=== PATIENT | female | born 1980 | race Hispanic/Latino ===

== ENCOUNTER 2016-07-22 08:37 | Observation (INO) | payer MEDICAID, OTHER ==
[2016-07-22] VITALS (21 sets, daily range): BP systolic 97–129; BP diastolic 52–83; PULSE 56–115; RESP 10–19; O2SAT 95–100
[~2016-07-22] VITALS: Ht 154.9 cm; Wt 56.8 kg
[2016-07-22] MEDS ORDERED: Ondansetron 2 mg/mL 2 mL Inj IVPUSH ONE (09:05)
[2016-07-22] MEDS ORDERED: HYDROmorphone 0.5 mg/0.5 mL iSecure Syringe IVPUSH PRN (09:05)
[2016-07-22] MEDS ORDERED: 0.9% Sodium Chloride 1,000 ML IV ONE (09:05)
--- NOTE | 2016-07-22 09:22 | ED.REPORT ---
HPI-General Illness Date of Service Jul 22, 2016 ED Provider: Brennan Guerrero MD Pt is a 35 y/o female with a hx of gallstones who presents to the ED complaining of worsening RUQ abdominal pain for the past few days. Patient states that she has daily RUQ abdominal pain after eating, but that it has been especially severe for the past few days. Pt c/o of associated nausea and vomiting after eating. Pt denies hematochezia and fever. Her last PO intake was yesterday at 2300. She does not take any daily medications and is otherwise healthy. She is on the Depo shot and is not currently on her period. Nursing Notes Stated Complaint: GENERAL Chief Complaint: Female Abdominal Pain Nursing Notes Reviewed: Yes Allergies: Coded Allergies: No Known Allergies (Unverified Allergy, Unknown, 07/22/16) General Time Seen by MD: 09:04 Chief Complaint Abdominal pain Hx Obtained From: Patient, Spouse Arrived By: Walk-in Sudden in Onset?: Yes Onset Occurred: Just prior to arrival Symptom Duration: Since onset Location: : Abdomen Quality: Painful Severity: Current: Moderate Severity: Maximum: Moderate Similar Sx Previous: Yes Past Medical History Past Medical History known gallstones since 2010 Past Surgical History none reported Smoking History Unknown if Ever Smoker Social History Other Social History: Good social support, Local resident Ambulatory Status Independent Review of Systems Full Review of Systems Constitutional: Denies: Chills, Fever GI: Reports: Abdominal pain, Nausea, Vomiting, Denies: Hematochezia Complete sys rev & neg: except as marked. Physical Exam Vital Signs Vital Signs Date Time Temp Pulse Resp B/P Pulse Ox O2 Delivery O2 Flow Rate FiO2 07/22/16 10:49 37.1 78 97/63 Room Air 07/22/16 08:52 36.8 78 15 97/52 100 Room Air Initial VS: Reviewed General/Constitutional: Well-developed, Well-nourished Head / Eyes: Atraumatic, Normocephalic, PERRL ENT: Mucous membranes moist, Conjunctiva normal, No scleral icterus Neck: Supple, Non-tender, Full range of motion Respiratory: Breath sounds normal, Clear to auscultation, No respiratory distress Cardiovascular: Regular rate & rhythm, Heart sounds normal, Intact distal pulses Extremities: Vascular intact, Neuro intact Skin: Warm, Dry, No cyanosis Neurologic: Alert, Oriented, Nonfocal Psychiatric: Mood/affect normal, Behavior normal, Normal thought content General/Constitutional: Awake, Alert, Well appearing Head / Eyes: Atraumatic, Normocephalic, PERRL ENT: Atraumatic, Airway patent, Mucous membranes moist Abdomen: Soft, BS normoactive Tenderness/Guarding/Rebound: Positive: Guarding voluntary, Tender RUQ... ( exquisitely tender in RUQ) Interpretation & Diagnostics US ABDOMEN IMPRESSION: 1. Cholelithiasis, along with gallbladder wall thickening consistent with acute cholecystitis. 2. New dilation of the extrahepatic bile duct, suspicious for occult common bile duct stone. 3. Findings consistent with diffuse fatty infiltration of the liver, with focal fatty sparing adjacent to the gallbladder fossa. Dictated by: Amilcar Foreman M.D. on 07/22/2016 at 10:47 Approved by: Amilcar Foreman M.D. on 07/22/2016 at 10:47 Lab Results Interpretation Result Diagram: 07/22/16 0920 07/22/16 1808 Test 07/22/16 09:20 07/22/16 10:36 White Blood Count 12.8th/mm3 (3.8-10.1) Red Blood Count 5.08mil/mm3 (3.90-5.20) Hemoglobin 15.1g/dL (12.0-15.6) Hematocrit 43.2% (35.0-46.0) Mean Corpuscular Volume 85.0fL (81-100) Mean Corpuscular Hemoglobin 29.7pg (27.0-35.0) Mean Corpuscular Hemoglobin Concent 35.0% (32.0-37.0) Red Cell Distribution Width 13.5% (12.3-15.4) Platelet Count 248bil/L (150-400) Neutrophils (%) (Auto) 83.1% (40-74) Lymphocytes (%) (Auto) 9.3% (14-46) Monocytes (%) (Auto) 6.7% (4-12) Eosinophils (%) (Auto) 0.5% (0-5) Basophils (%) (Auto) 0.2% (0-3) Hold Ernst Top Tube Received (Received) Urine Color Yellow (YELLOW) Urine Appearance Hazy (CLEAR,HAZY) Urine pH 6.0 (5.0-8.0) Urine Specific [place] 1.010 (1.003-1.035) Urine Protein Negativemg/dL (NEG,TRACE) Urine Glucose (UA) Negativemg/dL (NEGATIVE) Urine Ketones Negativemg/dL (NEGATIVE) Urine Occult Blood Trace (NEGATIVE) Urine Nitrite Negative (NEGATIVE) Urine Bilirubin Small (NEGATIVE) Urine Ictotest Positive (Negative) Urine Urobilinogen Normalmg/dL (NORMAL) Urine Leukocyte Esterase Small (NEGATIVE) Urine RBC 0-2/hpf (0-2) Urine WBC 0-5/hpf (0-5) Urine Epithelial Cells Few/hpf (NONE-MOD) Urine Crystals None seen (NONE SEEN) Urine Bacteria Moderate/hpf (NONE-FEW) Urine Hyaline Casts None/lpf (NONE) Urine Granular Casts None seen (NONE SEEN) Urine Waxy Casts None seen (NONE SEEN) Urine Red Blood Cell Casts None seen (NONE SEEN) Urine White Blood Cell Casts None seen (NONE SEEN) Urine Mucus None seen (None Seen) Urine Trichomonas None seen (NONE SEEN) Urine Yeast None (NONE SEEN) Urinalysis Comment None Urine Culture Reflexed Indicated Re-Eval/Medical Decision Med Decision/Clinical Course The patient is a 35-year-old female with a history of previously diagnosed cholelithiasis in 2010 for which she never underwent cholecystectomy due to being lost to follow-up who presents back to the emergency department today complaining of increasingly worsening postprandial abdominal pain associated with subjective fever/chills and vomiting. Upon arrival she is afebrile hemodynamically stable though has significant tenderness and guarding in the right upper quadrant. Laboratory studies are notable for significantly elevated transaminases and elevated T bili of 1.7. Additionally CBC is notable for leukocytosis. Ultrasound of the right upper quadrant demonstrates dilated common bile duct of 10 mm, multiple gallstones and sludge in the gallbladder and thickened gallbladder wall at 6 mm consistent with acute cholecystitis. Here in the emergency department the patient was treated with Dilaudid, Zofran, and IV fluids, followed by LR at 100 per hour and a dose of Zosyn. The patient was discussed with the admitting general surgeon and plan is for laparoscopic cholecystectomy this afternoon. The patient remained stable and in no apparent distress and was admitted to the surgical service for further management. Urine dip was positive for blood and was negative Time of Eval: 10:00 Re-Evaluation/Progress Note: Pt rechecked. Informed pt of diagnosis of cholecystitis and need for admission. Pt understands and agrees with plan for admission. Pt will be admitted to surgery this afternoon. All questions addressed. Consultation : Referral / Consult Name: Sourav Butler MD Consulted With: Surgeon Call Returned at: 09:36 Gold Leaf Gilder: Will see patient, Agrees with eval, Agrees with plan, Accepts admit Note: Spoke with Dr. Butler, surgeon agrees to admit pt for surgery. Surgery set for this afternoon. Counseled Regarding: Diagnosis, Lab results, Need for admission Discharge & Departure Primary Impression: Cholecystitis Additional Impressions: Cholelithiasis Cholelithiasis location: gallbladder Cholecystitis presence: with cholecystitis Cholecystitis acuity: unspecified acuity Biliary obstruction: without biliary obstruction Qualified Code: K80.00 - Calculus of gallbladder with acute cholecystitis without obstruction Right upper quadrant pain Nausea and vomiting Vomiting type: unspecified Vomiting Intractability: unspecified Qualified Code: R11.2 - Nausea with vomiting, unspecified Leukocytosis Leukocytosis type: unspecified Qualified Code: D72.829 - Elevated white blood cell count, unspecified Disposition: ADMITTED TO HOSPITAL Discharge Condition All VS Reviewed: Yes Condition: Stable Referrals: Ankur Zimmer MD (PCP) David Attestation Portion of this note were transcribed by Asha Zhang and Kendra Parikh. I, Dr. Guerrero, personally performed the history, physical exam, and medical decision-making: I reviewed and confirmed the accuracy for the information in the transcribed note. Signed by: David Najera, 07/22/2016 1125 Signed by: David Og, 07/22/2016 1212 copies to: Ankur Zimmer MD, Beck O MD Jul 22, 2016 09:21 KENDRA PARIKH Jul 22, 2016 09:39 Asha Zhang Jul 22, 2016 09:58 Re-Eval/Medical Decision Med Decision/Clinical Course The patient is a 35-year-old female with a history of previously diagnosed cholelithiasis in 2010 for which she never underwent cholecystectomy due to being lost to follow-up who presents back to the emergency department today complaining of increasingly worsening postprandial abdominal pain associated with subjective fever/chills and vomiting. Upon arrival she is afebrile hemodynamically stable though has significant tenderness and guarding in the right upper quadrant. Laboratory studies are notable for significantly elevated transaminases and elevated T bili of 1.7. Additionally CBC is notable for leukocytosis. Ultrasound of the right upper quadrant demonstrates dilated common bile duct of 10 mm, multiple gallstones and sludge in the gallbladder and thickened gallbladder wall at 6 mm consistent with acute cholecystitis. Here in the emergency department the patient was treated with Dilaudid, Zofran, and IV fluids, followed by LR at 100 per hour and a dose of Zosyn. The patient was discussed with the admitting general surgeon and plan is for laparoscopic cholecystectomy this afternoon. The patient remained stable and in no apparent distress and was admitted to the surgical service for further management. Urine dip was positive for blood and was negative Time of Eval: 10:00 Re-Evaluation/Progress Note: Pt rechecked. Informed pt of diagnosis of cholecystitis and need for admission. Pt understands and agrees with plan for admission. Pt will be admitted to surgery this afternoon. All questions addressed. Consultation : Referral / Consult Name: Sourav Butler MD Consulted With: Surgeon Call Returned at: 09:36 [place] Gilder: Will see patient, Agrees with eval, Agrees with plan, Accepts admit Note: Spoke with Dr. Butler, surgeon agrees to admit pt for surgery. Surgery set for this afternoon. Counseled Regarding: Diagnosis, Lab results, Need for admission Discharge & Departure Primary Impression: Cholecystitis Additional Impression: Cholelithiasis Cholelithiasis location: gallbladder Cholecystitis presence: with cholecystitis Cholecystitis acuity: unspecified acuity Biliary obstruction: without biliary obstruction Qualified Code: K80.00 - Calculus of gallbladder with acute cholecystitis without obstruction Disposition: ADMITTED TO HOSPITAL Discharge Condition All VS Reviewed: Yes Condition: Stable Referrals: Ankur Zimmer MD (PCP) David Attestation Portion of this note were transcribed by Asha Zhang and Kendra Parikh. I, Dr. Guerrero, personally performed the history, physical exam, and medical decision-making: I reviewed and confirmed the accuracy for the information in the transcribed note. Signed by: David Najera, 07/22/2016 1124 Signed by: David Og, 07/22/2016 1212 copies to: Ankur Zimmer MD, Beck O MD Jul 22, 2016 09:21 KENDRA PARIKH Jul 22, 2016 09:39 Asha Zhang Jul 22, 2016 09:58
[2016-07-22] MEDS ORDERED: Alum-Mag Hydrox-Simeth 30 mL Suspension PO PRN (09:40)
[2016-07-22] MEDS ORDERED: Ondansetron 2 mg/mL 2 mL Inj IVPUSH PRN ×2 (09:40→16:35)
[2016-07-22] MEDS ORDERED: Piperacillin-Tazo 3.375 Gm Inj 3.375 GM in Dextrose 5% Minibag Plus 50 ML IV ONE (09:40)
[2016-07-22 09:41] LABS: BASOPHILS % (AUTO) 0.2 % (0-3); EOSINOPHILS % (AUTO) 0.5 % (0-5); MONOCYTES % (AUTO) 6.7 % (4-12); Mean Corpuscular Hemoglobin 29.7 pg (27.0-35.0); NEUTROPHILS % (AUTO) 83.1 % (40-74); Platelet Count 248 bil/L (150-400)
--- NOTE | 2016-07-22 10:49 | DRSVH ---
PROCEDURE: US ABDOMEN ([id number]) INDICATIONS: 35 year-old female with right upper quadrant abdominal pain. TECHNIQUE: Real-time scanning was performed of the abdominal and retroperitoneal organs, with image documentatio n. COMPARISON: [facility], US, ABDOMEN SONOGRAM, 04/09/2011, 8:02. FINDINGS: Liver: Liver is normal in size and diffusely heterogeneous in echotexture, with focal sparing. Gallbladder: Multiple dependent shadowing gallstones are again noted. There is gallbladder wall thick ening up to 5 mm. No pericholecystic fluid. Sonographic Valladares's sign is present. Biliary ducts: Intrahepatic bile ducts are non-dilated. Extrahepatic bile duct caliber measures up to 12 mm. Normal is 6-7 mm or less in diameter, or 10 mm or less post-cholecystectomy. Pancreas: Visualized portions of the pancreas are sonographically normal. Spleen: Spleen is normal in size and homogeneous in echotexture. Kidneys: Kidneys are normal in size and echotexture. Right kidney measures 10.1 cm long; left kidne y measures 10.8 cm long. No hydronephrosis or nephrolithiasis. No solid masses. Aorta: Visualized aorta is normal in caliber at less than 3 cm. Iliacs: Proximal common iliac arteries are normal in caliber at less than 2.5 cm. IVC: Intrahepatic inferior vena cava is patent. Miscellaneous: No free abdominal fluid. IMPRESSION: 1. Cholelithiasis, along with gallbladder wall thickening consistent with acute cholecystitis. 2. New dilation of the extrahepatic bile duct, suspicious for occult common bile duct stone. 3. Findings consistent with diffuse fatty infiltration of the liver, with focal fatty sparing adjacen t to the gallbladder fossa. Dictated by: Amilcar Foreman M.D. on 07/22/2016 at 10:47 Approved by: Amilcar Foreman M.D. on 07/22/2016 at 10:47
[2016-07-22 10:57] LABS: APPEARANCE,URINE HAZY (CLEAR,HAZY); COLOR,URINE YELLOW (YELLOW); OCCULT BLOOD,URINE TRACE (NEGATIVE)
[2016-07-22 10:59] LABS: ICTOTEST,URINE POSITIVE (Negative); UROBILINOGEN,URINE NORMAL (NORMAL)
[2016-07-22] MEDS: Lactated Ringer's 1,000 ML IV SCH ×2 (11:07→19:37)
[2016-07-22] MEDS ORDERED: HYDROmorphone 2 mg/mL Inj ONE (11:21)
[2016-07-22] MEDS ORDERED: fentaNYL-PF 50 mCg/mL 2 mL Inj ONE (11:21)
[2016-07-22] MEDS ORDERED: Glycopyrrolate 0.2 mg/mL 5 mL Inj ONE (11:21)
[2016-07-22] MEDS ORDERED: Succinylcholine Chloride 20 mg/mL 5 mL Inj ONE (11:21)
[2016-07-22] MEDS ORDERED: Propofol 10,000 mCg/mL 20 mL Inj ONE (11:21)
[2016-07-22] MEDS ORDERED: Dexamethasone 4 mg/mL Inj ONE (11:21)
--- NOTE | 2016-07-22 14:48 | HP ---
[address] [address] HISTORY AND PHYSICAL PATIENT: EBONI GAMINO : 1980 MR#: [id number] ADMIT: 07/22/2016 JOB ID: [id number] CORRECTED REPORT: DATE OF SERVICE: 07/22/2016 REASON FOR CONSULTATION: The patient is seen in consultation at the request of Dr. Guerrero regarding further evaluation and management of possible acute cholecystitis. HISTORY OF PRESENT ILLNESS: The patient is a 35-year-old female who presented to the emergency department this morning with a complaint of right upper quadrant abdominal pain. The patient reports a history of intermittent right upper quadrant abdominal pain for the past seven years. She has had an ultrasound in 2010 which demonstrated cholelithiasis and signs of possible early acute cholecystitis. Last night she had chicken soup for dinner. She then awoke with the same pain as usual at 1 a.m. She describes the pain as an intense constant pain in the epigastrium and right upper quadrant that radiates to the right ribs and back. Typically the pain lasts 30 minutes or so. When this pain persisted for many hours, it prompted a visit to the emergency department. There she was found to have a leukocytosis of 12.8. She also has slightly elevated LFTs with a bilirubin of 1.7 and also a lipase of 1399. An ultrasound was obtained which demonstrates cholelithiasis, as well as gallbladder wall thickening up to 5 mm. No pericholecystic fluid was identified. She did have a positive sonographic Valladares sign. The extrahepatic bile duct measured up to 12 mm, with normal being 6-7 mm. I was therefore consulted. The patient tells me that her pain has almost completely resolved. She had been experiencing vomiting as well, which has resolved. PAST MEDICAL HISTORY: None. PAST SURGICAL HISTORY: None. CURRENT MEDICATIONS: None. ALLERGIES: No known drug allergies. FAMILY HISTORY: Family history is significant for a sister who had cholecystectomy. SOCIAL HISTORY: She lives in [place]. She is accompanied by her . 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 She does not smoke or drink alcohol. REVIEW OF SYSTEMS: Full review of systems is obtained and as per HPI and otherwise negative. PHYSICAL EXAMINATION: She is afebrile; her temperature is 37.1 degrees, heart rate 78 beats per minute, blood pressure is 97/63, saturating 100% on room air, with a respiratory rate of 15. In general, she appears comfortable, in no acute distress. Cardiovascular: She has a regular rate and rhythm. No appreciated murmurs, rubs, or gallops. Pulmonary: Lungs clear to auscultation bilaterally. Vascular: She has no carotid bruit. Neck: She has no thyromegaly. Lymphatic: She has no cervical lymphadenopathy. GI: Her abdomen is soft, nondistended. She has some mild focal tenderness to palpation in the epigastrium. She does not have a positive Valladares sign. Extremities: Warm, without significant edema. Skin: Warm, without rash. Neurologic: Grossly intact. Psychiatric: Pleasant and appropriate. LABORATORY: Labs are reviewed and as per the HPI. IMAGING: Ultrasound is personally reviewed and as per the HPI, consistent with cholecystitis and enlarged common bile duct. ASSESSMENT AND PLAN: This is a 35-year-old female with history, physical findings, and radiographic findings suggestive of a diagnosis of acute cholecystitis. Also it looks like she may have mild pancreatitis, likely from either choledocholithiasis or a stone that has already been passed. I recommend laparoscopic cholecystectomy with intraoperative cholangiogram. I reviewed the technical and convalescent aspects of surgery, as well as the potential risks and complications. I also reviewed the ramifications of finding a stone in the common bile duct requiring either laparoscopic common bile duct exploration, or if that failed, ERCP the following day. The patient understands and consents to surgery. This will be performed as soon as operating room is available. Corrected by JANICE 07/29/16 at 8:02am Report type
--- NOTE | 2016-07-22 15:45 | PCM.HPANE ---
Patient Data Surgeon Admitting Provider: Attending Provider:Sourav Butler MD Primary Care Physician:Ankur Zimmer MD Other Provider:[facility] Reason for Visit Cholecystitis Ht/WT & BMI Height (Feet): 5 Height (Inches): 2 Weight (Kilograms): 56.82 Body Mass Index Allergies Coded Allergies: No Known Allergies (Unverified Allergy, Unknown, 07/22/16) Diabetes History Hx Diabetes?: No History History of ENT Problems?: No Hx of Heart Problems?: No Cardiovascular History: Denies:: Congestive Heart Failure Hypertension Hx of Respiratory Problem?: No Respiratory History: Denies:: Tuberculosis Hx Neurologic Problems?: No Hx of GI Problems?: Yes Gastrointestinal History: Positive for:: Gall Bladder Disease Hx of Problems?: No HX of Peritoneal Dialysis: No Female Hx: Denies:: Currently Hx Musculoskeletal Problems?: No Hx of Psycho/Social Problems?: No Hx Surgeries?: No Hx Any Other Health Problems?: No Hx Diabetes: No Hx Alcohol Use: NoHx Substance Use: No Smoking Status: Unknown if Ever Smoker Stop/Bang TRISTIN Risk Assessment: Low Risk, <3 Yes Risk Assessment Category Category 1A: Patient has history of documented sleep apnea, and HAS NOT received any narcotic, sedative or anesthesia administration during this stay. Category 1B: Patient has history of documented sleep apnea, and HAS received any narcotic , sedative or anesthesia administration during this stay Category 2: Patient has SUSPECTED Obstructive Sleep Apnea, and HAS received any narcotic , sedative or anesthesia administration during this stay. Category 3: Patient has SUSPECTED Obstructive Sleep Apnea and HAS NOT received narcotic, sedative or anesthesia administration during this stay. Category 4: Outpatient in Procedural Areas with known sleep apnea or who screen positive for High Risk via the STOP/BANG questionnaire. Exam Exam Vital Signs Vital Signs Date Time Temp Pulse Resp B/P Pulse Ox O2 Delivery O2 Flow Rate FiO2 07/22/16 10:49 37.1 78 97/63 Room Air 07/22/16 08:52 36.8 78 15 97/52 100 Room Air General Appearance: Alert, Oriented X3, Cooperative, No Acute Distress HEENT/AIRWAY: MP 2 Lungs: Clear to Auscultation, Normal Air Movement Heart: Exam Unremarkable, Regular Rate/Rhythm, No Murmurs/Rubs/Gallops Meds/Labs/Diagnostics Admission Meds Current Medications Sodium Chloride (Normal Saline) 1,000 ml @ 0 mls/hr Q0M ONCE IV Last administered on 07/22/16 10:21; Start 07/22/16 at 09:05; Stop 07/22/16 at 09:07; Status DC Ondansetron HCl 4 mg 4 mg ONCE ONCE IVPUSH Last administered on 07/22/16 10:21 ; Start 07/22/16 at 09:05; Stop 07/22/16 at 09:07; Status DC Lactated Ringer's 1,000 ml @ 100 mls/hr Q10H IV Last administered on 07/22/16 11:07; Start 07/22/16 at 09:37 Piperacillin Sod/ Tazobactam Sod/ Dextrose/Water (Zosyn 3.375 Gm Inj/D5W Minibag Plus) 50 ml @ 100 mls/hr ONCE ONCE IV Last administered on 07/22/16 10:37; Start 07/22/16 at 09:40; Stop 07/22/16 at 10:09; Status DC Labs Test 07/22/16 09:20 07/22/16 10:36 White Blood Count 12.8th/mm3 (3.8-10.1) Red Blood Count 5.08mil/mm3 (3.90-5.20) Hemoglobin 15.1g/dL (12.0-15.6) Hematocrit 43.2% (35.0-46.0) Mean Corpuscular Volume 85.0fL (81-100) Mean Corpuscular Hemoglobin 29.7pg (27.0-35.0) Mean Corpuscular Hemoglobin Concent 35.0% (32.0-37.0) Red Cell Distribution Width 13.5% (12.3-15.4) Platelet Count 248bil/L (150-400) Neutrophils (%) (Auto) 83.1% (40-74) Lymphocytes (%) (Auto) 9.3% (14-46) Monocytes (%) (Auto) 6.7% (4-12) Eosinophils (%) (Auto) 0.5% (0-5) Basophils (%) (Auto) 0.2% (0-3) Sodium Level 141mEq/L (134-144) Potassium Level 4.0mEq/L (3.5-5.2) Chloride Level 104mEq/L (97-108) Carbon Dioxide Level 24mmol/L (18-29) Blood Urea Nitrogen 6mg/dL (6-20) Creatinine 0.45mg/dL (0.57-1.00) Estimat Glomerular Filtration Rate 230mL/min (>59) Glucose Level 127mg/dL (60-99) Calcium Level 8.9mg/dL (8.5-10.1) Total Bilirubin 1.7mg/dL (0.0-1.2) Aspartate Amino Transf (AST/SGOT) 835U/L (0-50) Alanine Aminotransferase (ALT/SGPT) 513U/L (0-32) Alkaline Phosphatase 118U/L (25-150) Total Protein 7.8g/dL (6.4-8.4) Albumin 4.2g/dL (3.4-5.0) Lipase 1399U/L (13-60) Hold Ernst Top Tube Received (Received) Urine Color Yellow (YELLOW) Urine Appearance Hazy (CLEAR,HAZY) Urine pH 6.0 (5.0-8.0) Urine Specific [place] 1.010 (1.003-1.035) Urine Protein Negativemg/dL (NEG,TRACE) Urine Glucose (UA) Negativemg/dL (NEGATIVE) Urine Ketones Negativemg/dL (NEGATIVE) Urine Occult Blood Trace (NEGATIVE) Urine Nitrite Negative (NEGATIVE) Urine Bilirubin Small (NEGATIVE) Urine Ictotest Positive (Negative) Urine Urobilinogen Normalmg/dL (NORMAL) Urine Leukocyte Esterase Small (NEGATIVE) Urine RBC 0-2/hpf (0-2) Urine WBC 0-5/hpf (0-5) Urine Epithelial Cells Few/hpf (NONE-MOD) Urine Crystals None seen (NONE SEEN) Urine Bacteria Moderate/hpf (NONE-FEW) Urine Hyaline Casts None/lpf (NONE) Urine Granular Casts None seen (NONE SEEN) Urine Waxy Casts None seen (NONE SEEN) Urine Red Blood Cell Casts None seen (NONE SEEN) Urine White Blood Cell Casts None seen (NONE SEEN) Urine Mucus None seen (None Seen) Urine Trichomonas None seen (NONE SEEN) Urine Yeast None (NONE SEEN) Urinalysis Comment None Urine Culture Reflexed Indicated Plan Impression Patient chart reviewed, patient interviewed and anesthestic plan with risks, benefits, and alternatives discussed, and informed consent obtained. NPO Status: >8h ASA Physical Status: ASA1 Normal Healthy Anesthetic Plan: GA Bene/Risks/Altern/Consents: Yes HP Complete Prior to Induction: Yes Ken Larkin MD Jul 22, 2016 15:45
[2016-07-22] MEDS ORDERED: Lactated Ringer's 1,000 ML IV ONE ×2 (15:55→18:30)
[2016-07-22] MEDS ORDERED: Lactated Ringer's 500 ML IV PRN (16:34)
[2016-07-22] MEDS ORDERED: Lactated Ringer's 1,000 ML IV SCH (16:34)
[2016-07-22] MEDS ORDERED: Phenylephrine 10,000 mCg/mL Inj IVPUSH PRN (16:35)
[2016-07-22] MEDS ORDERED: hydrALAZINE 20 mg/mL Inj IVPUSH PRN (16:35)
[2016-07-22] MEDS ORDERED: Labetalol 5 mg/mL 4 mL Inj IV PRN (16:35)
[2016-07-22] MEDS ORDERED: Atropine 0.4 mg/mL Inj IVPUSH PRN (16:35)
[2016-07-22] MEDS ORDERED: fentaNYL-PF 50 mCg/mL 2 mL Inj IVPUSH PRN (16:35)
[2016-07-22] MEDS ORDERED: HYDROmorphone 1 mg/mL Inj IVPUSH PRN (16:35)
[2016-07-22] MEDS ORDERED: MetoCLOpramide 5 mg/mL 2 mL Inj IVPUSH PRN ×2 (16:35→22:15)
[2016-07-22] MEDS ORDERED: EPHEDrine Sulfate 50 mg/mL Inj IVPUSH PRN (16:35)
[2016-07-22] MEDS ORDERED: Bupivacaine-MPF 0.5% W/EPI 30 mL Inj INFILTRATE ONE (16:37)
[2016-07-22] MEDS: Acetaminophen IV 1,000 MG in IV Premix 1 EACH IV SCH (17:50)
--- NOTE | 2016-07-22 19:14 | OP ---
[address] [address] OPERATIVE REPORT PATIENT: EBONI GAMINO : 1980 MR#: [id number] ADMIT: 07/22/2016 JOB ID: [id number] DATE OF SURGERY: 07/22/2016 ANESTHESIA: General. PREOPERATIVE DIAGNOSIS(ES): 1. Cholecystitis. 2. Gallstone pancreatitis. POSTOPERATIVE DIAGNOSIS(ES): 1. Cholecystitis. 2. Choledocholithiasis. 3. Gallstone pancreatitis. OPERATIVE PROCEDURE: Laparoscopic cholecystectomy with intraoperative cholangiogram and transcystic common bile duct exploration with stone extraction, using fluoroscopy with interpretation. SURGEON: Sourav Butler MD MEDICAL CODER: 1. Philip Dunham PA-C (the assistant superintendent was required for the safe and timely completion of the case). 2. Rosa Pandya PA-C. COMPLICATIONS: None. ESTIMATED BLOOD LOSS: Minimal. CONDITION: Satisfactory. SPECIMEN: Gallbladder. FINDINGS: The gallbladder was acutely inflamed. Cholangiogram demonstrated a large stone in the distal common bile duct. I was able to pull the stone back to the common bile duct cystic junction using the 2.2-Czech nitinol helical stone extractor and then crush the stone and remove it. Subsequent cholangiogram demonstrated good flow into the duodenum. INDICATIONS AND SIGNIFICANT HISTORY: The patient is a 35-year-old female who presented to the emergency department this morning with complaint of right upper quadrant abdominal pain. She has had episodes in the past, but none that persisted for so long. Ultrasound demonstrated findings consistent with calculus cholecystitis as well as an enlarged common bile duct. Preoperative labs demonstrated elevated lipase as well as an elevated bilirubin. OPERATIVE TECHNIQUE: The patient was taken to the operating room and placed in supine position. General anesthesia was administered and preoperative antibiotics were given. The abdomen was prepped and draped in standard surgical fashion. A procedure pause was performed. Entry was gained into the abdomen through a supraumbilical incision using a 10 mm Optiview trocar. Pneumoperitoneum was achieved without complication. Local anesthetic was injected, followed by insertion of 5 mm ports in the subxiphoid as well as two in the right upper quadrant. The gallbladder was grasped and retracted cephalad and dissection begun to identify the cystic duct and cystic artery. Eventually a critical view of safety was achieved. The cystic artery was clipped and taken using cautery. There was bleeding from the right hepatic and cystic plate which was also clipped. A single clip was placed at the gallbladder cystic duct junction and the duct was opened sharply. There was brisk flow of bile, indicating that it was under pressure. Cholangiogram was then obtained demonstrating no flow into the duodenum. She had normal anatomy other than the ducts were dilated. She was given IV glucagon and I injected 10 cc of lidocaine into the duct. Subsequent cholangiogram again demonstrated no filling and this time the stone was more apparent. It was rather large and in the distal common bile duct. I then a 2.2-Czech helical stone extractor through my cholangiocatheter into the common bile duct. Under fluoroscopy I was able to get around the stone and pull it up to the common bile duct/cystic duct junction. It was too large to get back all the way out through the cystic duct. I therefore used a clamp to apply extrinsic compression to it and I was able to crush and extract some of it through the duct. I then flushed the duct with a cholangiocatheter. Subsequent cholangiogram demonstrated good flow into the duodenum with no obvious retained fragments. Two clips were then placed on the cystic duct and the transection completed. The remainder of the dissection of the gallbladder off the cystic plate was then completed and the gallbladder placed in an EndoCatch bag and removed through the umbilical port site. The surgical bed was copiously irrigated and was found to be hemostatic. The fascia at the umbilical port site was closed using 0 PDS suture with a laparoscopic suture passer. The lateral ports were then removed under direct visualization followed by release of pneumoperitoneum. The skin was closed using 4-0 Monocryl. CHANA
[2016-07-22] MEDS: Dextrose 5% Lactated Ringer's 1,000 ML IV SCH (19:53)
[2016-07-22] MEDS: Ondansetron 2 mg/mL 2 mL Inj IVPUSH PRN ×2 (20:00→20:32)
--- NOTE | 2016-07-22 20:02 | NUR ---
POST OP PATIENT ARRIVED POST OPERATIVE ALERT AND ORIENTED X3 , FALLS ASLEEP EASILY. EYES ARE CLOSED. DRY HEAVES ON ARRIVAL. MEDICATED WITH ZOFRAN 4MG IVP. HEART RATE TACHY 110-115. BP STABLE. 2 LITERS NC. DENIES PAIN. DRESSINGS TO ABD. C/D/I. RIGHT LATERAL GAUZE DRESSING HAS SMALL SHADOW OF DRAINAGE. NPO. EXPLAINED TO FAMILY. PATIENT AWARE. PATIENT CRYING. STATES "I DON'T WANT SCARS ON MY STOMACH." REASSURED. NOW NOT CRYING. EYES CLOSED AND RESTING. MULT FAMILY MEMBERS AT BEDSIDE. AWARE OF VISITING RULES. CARE ONGOING.
--- NOTE | 2016-07-22 21:35 | NUR ---
nausea patient complains of nausea medicated with zofran 8mg iv. nausea continues paged dr Butler via cookpaging. awaiting call back. family at bedside.
[2016-07-23] VITALS (13 sets, daily range): BP systolic 92–124; BP diastolic 53–89; PULSE 60–100; RESP 12–18; O2SAT 96–100
[2016-07-23] MEDS: Acetaminophen IV 1,000 MG in IV Premix 1 EACH IV SCH ×4 (00:05→17:50)
[2016-07-23] MEDS: HYDROmorphone 0.5 mg/0.5 mL iSecure Syringe IVPUSH PRN ×2 (02:07→05:37)
[2016-07-23] MEDS: Dextrose 5% Lactated Ringer's 1,000 ML IV SCH ×2 (05:37→18:50)
[2016-07-23] MEDS: Lactated Ringer's 1,000 ML IV SCH ×4 (05:37→17:47)
--- NOTE | 2016-07-23 05:52 | NUR ---
care update patient complained of incisional discomfort to abdomen 2 times over the shift. each time rated the pain a 4. medicated with dilaudid 0.5mg slow iv push as documented and tylenol iv as scheduled/documented patient with effective relief. ambulates to bathroom without difficulty at bedside.
[2016-07-23 07:20] LABS: BASOPHILS % (AUTO) 0.1 % (0-3); EOSINOPHILS % (AUTO) 0 % (0-5); MONOCYTES % (AUTO) 5.2 % (4-12); Mean Corpuscular Volume 86.1 fL (81-100); NEUTROPHILS % (AUTO) 88.9 % (40-74); Platelet Count 209 bil/L (150-400)
--- NOTE | 2016-07-23 09:19 | PCM.ANEP2 ---
Post Anesthesia Evaluation ASA/CMS Post Anesthesia Date of Service: Jul 23, 2016 VS in Patient's Normal Range?: Yes Resp Stable; Airway Patent?: Yes CV Function & Hydration Stable: Yes Mental Status Recovered?: Yes Pain control Satisfactory?: Yes N/V Control Satisfactory?: Yes Ken Larkin MD Jul 23, 2016 09:19
--- NOTE | 2016-07-23 09:19 | PCM.ANEP1 ---
Post Anesthesia Phase 1 PACU Phase 1 Assessment Date of Service: Jul 22, 2016 Vital Signs Vital Signs Date Time Temp Pulse Resp B/P Pulse Ox O2 Delivery O2 Flow Rate FiO2 07/23/16 09:07 36.7 76 16 104/65 96 Room Air 07/23/16 05:44 37.3 78 15 92/53 96 Room Air 07/23/16 01:30 36.7 75 15 99/57 96 Room Air Anesthetic Administered: GA Level of Alertness: Sleepy, easy to arouse ALVAREZ's with Equal Strength: Yes Pain: No Pain Scale Score: 4 Nausea or Vomiting: No Lungs: Clear to Auscultation, Normal Air Movement Ken Larkin MD Jul 23, 2016 09:19
[2016-07-23] MEDS: Piperacillin-Tazo 3.375 Gm Inj 3.375 GM in Dextrose 5% Minibag Plus 50 ML IV SCH ×2 (10:24→19:54)
--- NOTE | 2016-07-23 10:40 | PROG NOTE ---
[address] [address] PROGRESS NOTE PATIENT: EBONI GAMINO : 1980 MR#: [id number] ADMIT: 07/22/2016 JOB ID: [id number] DATE: 07/23/2016 SUBJECTIVE: The patient is seen on postoperative day one from laparoscopic cholecystectomy with laparoscopic transcystic common bile duct exploration. Overnight, the patient did relatively well. She did have some nausea that seems to be resolved this morning. She has remained afebrile and hemodynamically normal. This morning she is alert, oriented and comfortable. She stated that her pain has improved. Her abdomen is soft, nondistended. She continues to have focal tenderness to palpation in the epigastric region. Her incisions look fine. Her white blood cell count has increased from 12.8 yesterday up to 17.2 this morning. Her bilirubin has also climbed. It was 1.7 preoperative, 3.8 immediately after surgery and 4.1 this morning. Her alk phos has gone the other direction and is 111 this morning. Her lipase has also normalized from 1399 down to 10 this morning. ASSESSMENT AND PLAN: This is a 35-year-old female, postoperative day one from laparoscopic cholecystectomy and common bile duct exploration for acute cholecystitis with choledocholithiasis with a climbing bilirubin. Yesterday at time of operation the stone was too large to extract through the cystic duct. I had crushed it and removed some sludge. Followup cholangiogram seems to suggest that everything was cleared. However, her bilirubin is climbing, indicating that there is likely an obstructing stone or fragments remaining within the common bile duct. I have talked to Dr. Khanh Mishra of gastroenterology, and he is going to consult on the patient and will likely arrange for an endoscopic retrograde cholangiopancreatography. The patient will remain n.p.o. I have resumed her, antibiotics, given that her duct was explored and now obstructed.
[2016-07-23] MEDS ORDERED: 0.9% Sodium Chloride 100 ML ONE ×3 (10:43→19:46)
--- NOTE | 2016-07-23 12:20 | CONS ---
[address] [address] CONSULTATION REPORT PATIENT: EBONI GAMINO : 1980 MR#: [id number] ADMIT: 07/22/2016 JOB ID: [id number] DATE OF SERVICE: 07/23/2016 GASTROENTEROLOGY CONSULTATION: REASON FOR CONSULTATION: Elevated bilirubin. HISTORY OF PRESENT ILLNESS: This is a pleasant 35-year-old, female with no past medical history who presents for consultation for elevated bilirubin. The patient was admitted to the hospital on July 22, 2016 because of right upper quadrant pain and found to have acute cholecystitis. The patient underwent a laparoscopic cholecystectomy with intraop cholangiogram and trans-cystic common bile duct exploration with stone extraction using fluoroscopy with interpretation on July 22, 2016. Since that point in time the patient states her abdominal pain has much improved. The patient's labs basically show a bilirubin that has increased from 3 to 4.1. The patient's transaminases have decreased since hospitalization with an AST from 835 to 563, and now 222; ALT of 513 to 642, to 466; and alk phos now 111. The patient denies rectal bleeding, nausea, vomiting, hematemesis. Appropriate abdominal pain after surgery which is much improved from hospitalization. No change in bowel habits or unintentional weight loss. The patient has never had an EGD or colonoscopy. Denies family history of colon cancer, inflammatory bowel disease, or celiac disease. During the from the surgery, the patient had a large stone that was too large to extract in the cystic duct that was crushed and a.m. the removed with some sludge. PAST MEDICAL HISTORY: None. PAST SURGICAL HISTORY: As above. ALLERGIES: No known drug allergies. MEDICATIONS: Current medications as an outpatient are none, but he is currently on Zosyn in-house. FAMILY HISTORY: Negative for colon cancer. SOCIAL HISTORY: Denies smoking, alcohol, or drugs. REVIEW OF SYSTEMS: The patient denies headache, blurry vision, nausea, vomiting, chest pain, shortness of breath. Positive for abdominal pain. No skin rash or joint pain. PHYSICAL EXAMINATION: Vital signs upon presentation: Temperature is 36.7, pulse 76, respiratory rate 16, blood pressure 104/65, satting 96% on room air. General: No acute distress. Head: No scars. Eyes: Anicteric. Throat: Supple. Lungs: Clear to auscultation bilaterally. Cardiovascular: Regular rhythm and rate. Abdomen: Soft, nondistended. Positive appropriate tenderness postsurgical upon palpation. Normoactive bowel sounds. Extremities: No clubbing, cyanosis, or edema. clubbing or edema. LABORATORIES: Show a sodium 140, potassium 3.8, chloride 105, bicarb 23, BUN 5, creatinine 0.35, glucose 139. Calcium 8.2, total bili 4.1, AST 222, ALT 466, alk phos 111, total protein 5.8, albumin 3.3, lipase of 10. White count 17.2, hemoglobin 12.5, hematocrit 35, platelet count of 209. ASSESSMENT: This is a 35-year-old female with no past medical history presenting here with right upper quadrant pain and pancreatitis on admission. Found to have acute cholecystitis status post laparoscopic cholecystectomy with intraoperative exploration of the common bile duct July 22, 2016. Now with rising bilirubin. I had spoke with Dr. Sourav Butler and agreed that the patient needs an ERCP with balloon sweep of the common bile duct to make sure that there is no retained stone. RECOMMENDATION: 1. Antibiotics per surgery such as Zosyn, which the patient is currently on. 2. NPO except for medications. 3. ERCP with anesthesia for today.
[2016-07-23] MEDS ORDERED: Dexamethasone 4 mg/mL Inj ONE (13:40)
[2016-07-23] MEDS ORDERED: Rocuronium 10 mg/mL 5 mL Inj ONE (13:40)
[2016-07-23] MEDS ORDERED: Ondansetron 2 mg/mL 2 mL Inj ONE (13:40)
[2016-07-23] MEDS ORDERED: Succinylcholine Chloride 20 mg/mL 5 mL Inj ONE (13:40)
[2016-07-23] MEDS ORDERED: Propofol 10,000 mCg/mL 20 mL Inj ONE (13:40)
--- NOTE | 2016-07-23 16:28 | NUR ---
Endoscopy Pt off unit to endoscopy for procedure.
--- NOTE | 2016-07-23 16:28 | NUR ---
Pain Pt has had not c/o pain or nausea. Urinating without any pain, although she says she has some hesitancy when urinating. Assessment done with manager of procurement and at bedside. Care continues.
--- NOTE | 2016-07-23 16:56 | DRSVH ---
PROCEDURE: X-RAY OPERATIVE CHOLANGIOGRAM ([id number]) INDICATIONS: CHOLIANGIOGRAM COMPARISON: None. FINDINGS: Biliary ducts: The surgeon injected contrast into the biliary ducts after cannulation of the cystic duct stump. Visualized intrahepatic bile ducts are normal in caliber, without strictures. Filling de fect is identified in the distal common bile duct. There is mild dilation of the common bile duct. Duodenum: Contrast flows promptly through the sphincter of Oddi into the duodenum, which appears nor mal in caliber. IMPRESSION: Filling defect within the distal common bile duct with mild ductal dilation. Finding is s uggestive of stone. Dictated by: Chen Jameson M.D. on 07/23/2016 at 16:54 Approved by: Chen Jameson M.D. on 07/23/2016 at 16:54
[2016-07-23] MEDS ORDERED: hydrALAZINE 20 mg/mL Inj IVPUSH PRN (17:05)
[2016-07-23] MEDS ORDERED: fentaNYL-PF 50 mCg/mL 2 mL Inj IVPUSH PRN (17:05)
[2016-07-23] MEDS ORDERED: Lactated Ringer's 1,000 ML IV SCH (17:05)
[2016-07-23] MEDS ORDERED: hydrOXYzine Inj 25 MG/1 mL SDV IM PRN (17:05)
[2016-07-23] MEDS ORDERED: EPHEDrine Sulfate 50 mg/mL Inj IVPUSH PRN (17:05)
[2016-07-23] MEDS ORDERED: EPHEDrine Sulfate 50 mg/mL Inj IM PRN (17:05)
[2016-07-23] MEDS ORDERED: Atropine 0.4 mg/mL Inj IVPUSH PRN (17:05)
[2016-07-23] MEDS ORDERED: Ondansetron 2 mg/mL 2 mL Inj IVPUSH PRN (17:05)
[2016-07-23] MEDS ORDERED: HYDROmorphone 1 mg/mL Inj IVPUSH PRN (17:05)
[2016-07-23] MEDS ORDERED: Labetalol 5 mg/mL 4 mL Inj IV PRN (17:05)
[2016-07-23] MEDS ORDERED: Phenylephrine 10,000 mCg/mL Inj IVPUSH PRN (17:05)
[2016-07-23] MEDS ORDERED: MetoCLOpramide 5 mg/mL 2 mL Inj IVPUSH PRN (17:05)
[2016-07-23] MEDS ORDERED: Lactated Ringer's 500 ML IV PRN (17:05)
--- NOTE | 2016-07-23 17:05 | PCM.HPANE ---
Patient Data Surgeon Admitting Provider:Sourav Butler MD Attending Provider:Sourav Butler MD Primary Care Physician:Ankur Zimmer MD Other Provider:Mir Schmid Anesthesia Reason for Visit Cholecystitis Ht/WT & BMI Height (Feet): 5 Height (Inches): 1.00 Weight (Kilograms): 56.800 Body Mass Index 23.64 Allergies Coded Allergies: No Known Allergies (Unverified Allergy, Unknown, 07/23/16) Past Anesthesia History Anesthesia History: Denies:: Anesthesia Reactions Diabetes History Hx Diabetes?: No Current Bedside Blood Glucose: 147 MRSA MRSA: No Medications Home Meds Incl Beta Rosibel: No No Active Prescriptions or Reported Meds History History of ENT Problems?: No Hx of Heart Problems?: No Cardiovascular History: Denies:: Congestive Heart Failure Hypertension Hx of Respiratory Problem?: No Respiratory History: Denies:: Tuberculosis Hx Neurologic Problems?: No Hx of GI Problems?: Yes Gastrointestinal History: Positive for:: Gall Bladder Disease Other GI Pertinent History: abd discomfort x 7 years Hx of Problems?: No HX of Peritoneal Dialysis: No Female Hx: Denies:: Currently (on depo shot) Problems with Breasts? Hx Musculoskeletal Problems?: No Hx of Psycho/Social Problems?: No Hx Surgeries?: No Hx Any Other Health Problems?: No Other History: Denies:: Cancer Hospitalization Thyroid Disease History Blood Transfusions: Denies:: Blood Transfuse Reaction Blood Transfusions Hx Diabetes: NoBedside Blood Glucose: 147 Hx Alcohol Use: NoHx Substance Use: No Smoking Status: Unknown if Ever Smoker Have You Smoked inLast 12 mo: No Stop/Bang Treated for Sleep Apnea?: No Do You Have a CPAP Machine?: No S-Snoring: Do You Snore Loudly: No T-Tired: feel tired, fatigued: No O-Obsered: Observed not breath: No P-Blood Pressure: treated: No B- Body Mass Index > 35 kg/m2: No A- Age over 50: No N- Neck Large Circumference: No G- Gender Male: No TRISTIN Total Score: 0 TRISTIN Risk Assessment: Low Risk, <3 Yes Risk Assessment Category Category 1A: Patient has history of documented sleep apnea, and HAS NOT received any narcotic, sedative or anesthesia administration during this stay. Category 1B: Patient has history of documented sleep apnea, and HAS received any narcotic , sedative or anesthesia administration during this stay Category 2: Patient has SUSPECTED Obstructive Sleep Apnea, and HAS received any narcotic , sedative or anesthesia administration during this stay. Category 3: Patient has SUSPECTED Obstructive Sleep Apnea and HAS NOT received narcotic, sedative or anesthesia administration during this stay. Category 4: Outpatient in Procedural Areas with known sleep apnea or who screen positive for High Risk via the STOP/BANG questionnaire. Low Risk, <3 Yes Exam Exam Vital Signs Vital Signs Date Time Temp Pulse Resp B/P Pulse Ox O2 Delivery O2 Flow Rate FiO2 07/23/16 13:04 36.7 60 16 98/62 97 Room Air 07/23/16 09:07 36.7 76 16 104/65 96 Room Air General Appearance: Alert, Oriented X3, Cooperative, No Acute Distress HEENT/AIRWAY: MP 2 Lungs: Clear to Auscultation, Normal Air Movement Heart: Exam Unremarkable, Regular Rate/Rhythm, No Murmurs/Rubs/Gallops Meds/Labs/Diagnostics Admission Meds Current Medications Bupivacaine HCl/ Epinephrine Bitart (Sensorcaine-MPF 0.5% W/EPI Inj) 30 ml STK- MED ONCE INFILTRATE Last administered on 07/22/16 16:37; Start 07/22/16 at 16:37 ; Stop 07/22/16 at 16:43; Status DC Lidocaine HCl 20 ml 20 ml STK-MED ONCE INJ Last administered on 07/22/16 17:00 ; Start 07/22/16 at 17:00; Stop 07/22/16 at 17:11; Status DC Dextrose/Lactated Ringer's 1,000 ml @ 80 mls/hr [id number] IV Last administered on 07/23/16 05:37; Start 07/22/16 at 17:50 Acetaminophen/ Premix (Tylenol IV/IV Premix) 100 ml @ 400 mls/hr Q6H IV Last administered on 07/23/16 12:21; Start 07/22/16 at 17:50 Acetaminophen 1000 mg 1,000 mg STK-MED ONCE IV Last administered on 07/22/16 18 :55; Start 07/22/16 at 18:46; Stop 07/22/16 at 18:47; Status DC Lactated Ringer's 1,000 ml @ ud STK-MED ONCE IV Last administered on 07/22/16 18:30; Start 07/22/16 at 18:30; Stop 07/22/16 at 19:15; Status DC Piperacillin Sod/ Tazobactam Sod 3.375 gm/Dextrose/ Water 50 ml @ 12.5 mls/hr Q12 IV Last administered on 07/23/16 10:24; Start 07/23/16 at 08:30 Sodium Chloride 100 ml @ ud STK-MED ONCE .ROUTE Last administered on 07/23/16 10:46; Start 07/23/16 at 10:43; Stop 07/23/16 at 10:44; Status DC Sodium Chloride (Normal Saline) 100 ml @ ud STK-MED ONCE .ROUTE Last administered on 07/23/16 12:28; Start 07/23/16 at 12:25; Stop 07/23/16 at 12:26; Status DC Bedside Blood Glucose: 147 Labs Test 07/22/16 09:20 07/22/16 10:36 07/23/16 06:50 Hold Ernst Top Tube Received (Received) Urine Color Yellow (YELLOW) Urine Appearance Hazy (CLEAR,HAZY) Urine pH 6.0 (5.0-8.0) Urine Specific [place] 1.010 (1.003-1.035) Urine Protein Negativemg/dL (NEG,TRACE) Urine Glucose (UA) Negativemg/dL (NEGATIVE) Urine Ketones Negativemg/dL (NEGATIVE) Urine Occult Blood Trace (NEGATIVE) Urine Nitrite Negative (NEGATIVE) Urine Bilirubin Small (NEGATIVE) Urine Ictotest Positive (Negative) Urine Urobilinogen Normalmg/dL (NORMAL) Urine Leukocyte Esterase Small (NEGATIVE) Urine RBC 0-2/hpf (0-2) Urine WBC 0-5/hpf (0-5) Urine Epithelial Cells Few/hpf (NONE-MOD) Urine Crystals None seen (NONE SEEN) Urine Bacteria Moderate/hpf (NONE-FEW) Urine Hyaline Casts None/lpf (NONE) Urine Granular Casts None seen (NONE SEEN) Urine Waxy Casts None seen (NONE SEEN) Urine Red Blood Cell Casts None seen (NONE SEEN) Urine White Blood Cell Casts None seen (NONE SEEN) Urine Mucus None seen (None Seen) Urine Trichomonas None seen (NONE SEEN) Urine Yeast None (NONE SEEN) Urinalysis Comment None Urine Culture Reflexed Indicated White Blood Count 17.2th/mm3 (3.8-10.1) Red Blood Count 4.17mil/mm3 (3.90-5.20) Hemoglobin 12.5g/dL (12.0-15.6) Hematocrit 35.9% (35.0-46.0) Mean Corpuscular Volume 86.1fL (81-100) Mean Corpuscular Hemoglobin 30.0pg (27.0-35.0) Mean Corpuscular Hemoglobin Concent 34.8% (32.0-37.0) Red Cell Distribution Width 13.5% (12.3-15.4) Platelet Count 209bil/L (150-400) Neutrophils (%) (Auto) 88.9% (40-74) Lymphocytes (%) (Auto) 5.6% (14-46) Monocytes (%) (Auto) 5.2% (4-12) Eosinophils (%) (Auto) 0% (0-5) Basophils (%) (Auto) 0.1% (0-3) Sodium Level 140mEq/L (134-144) Potassium Level 3.8mEq/L (3.5-5.2) Chloride Level 105mEq/L (97-108) Carbon Dioxide Level 23mmol/L (18-29) Blood Urea Nitrogen 5mg/dL (6-20) Creatinine 0.35mg/dL (0.57-1.00) Estimat Glomerular Filtration Rate 307mL/min (>59) Glucose Level 139mg/dL (60-99) Calcium Level 8.2mg/dL (8.5-10.1) Total Bilirubin 4.1mg/dL (0.0-1.2) Aspartate Amino Transf (AST/SGOT) 222U/L (0-50) Alanine Aminotransferase (ALT/SGPT) 466U/L (0-32) Alkaline Phosphatase 111U/L (25-150) Total Protein 5.8g/dL (6.4-8.4) Albumin 3.3g/dL (3.4-5.0) Lipase 10U/L (13-60) Plan Impression Patient chart reviewed, patient interviewed and anesthestic plan with risks, benefits, and alternatives discussed, and informed consent obtained. NPO Status: >8h ASA Physical Status: ASA1 Normal Healthy Anesthetic Plan: GA Bene/Risks/Altern/Consents: Yes (via corn husker) Complete Prior to Induction: Yes Byron Mejia MD Jul 23, 2016 16:26
--- NOTE | 2016-07-23 18:14 | PCM.ANEP1 ---
Post Anesthesia Phase 1 PACU Phase 1 Assessment Date of Service: Jul 23, 2016 Vital Signs Vital Signs Date Time Temp Pulse Resp B/P Pulse Ox O2 Delivery O2 Flow Rate FiO2 07/23/16 18:05 36.8 65 12 111/71 100 Simple Mask 8 07/23/16 16:33 37.1 68 16 102/67 96 Room Air 07/23/16 13:04 36.7 60 16 98/62 97 Room Air Anesthetic Administered: GA Level of Alertness: Sleepy, easy to arouse ALVAREZ's with Equal Strength: Yes Pain: No Pain Scale Score: 0 Nausea or Vomiting: No Airway Device: Oralpharangeal Airway Oxygen Delivery: Simple Mask Lungs: Clear to Auscultation, Normal Air Movement Byron Mejia MD Jul 23, 2016 18:14
--- NOTE | 2016-07-23 18:15 | PCM.ANEP2 ---
Post Anesthesia Evaluation ASA/CMS Post Anesthesia VS in Patient's Normal Range?: Yes Resp Stable; Airway Patent?: Yes CV Function & Hydration Stable: Yes Mental Status Recovered?: Yes Pain control Satisfactory?: Yes N/V Control Satisfactory?: Yes Byron Mejia MD Jul 23, 2016 18:14
--- NOTE | 2016-07-23 18:42 | NUR ---
Post Op Pt arrived from endoscopy at 1843. A&Ox3. ALVAREZ. Able to transfer from stretcher to bed. Denies pain. Family at bedside.
--- NOTE | 2016-07-23 22:23 | ENDO ---
[address] [address] ENDOSCOPY PROCEDURE PATIENT: EBONI GAMINO : 1980 MR#: [id number] ADMIT: 07/22/2016 JOB ID: [id number] PROCEDURE: Endoscopic retrograde cholangiopancreatography. INDICATIONS: Jaundice status post laparoscopic cholecystectomy for cholelithiasis. She was found to have a CBD stone with intraoperative cholangiogram. The stone was crushed and removed. Subsequent cholangiogram demonstrated good flow into the duodenum, however, postop day number two her bilirubin has increased. ANESTHESIA: Please see Dr. Byron Schmitt's anesthesia report for details regarding general anesthesia. INSTRUMENT USED: TJF Q180V. PROCEDURE DETAILS: After informed consent was obtained with the help of a masonry instructor, the patient was brought into the GI suite where she was placed under general anesthesia and then placed in the standard ERCP position. Initial product picker films demonstrated clips in the usual area of the gallbladder. Otherwise normal-appearing scalp film. The side-viewing duodenoscope was then inserted through the bite block and advanced without difficulty to the second portion of the duodenum. The ampulla was identified and appeared normal. There was bile seen flowing from the ampulla. Next, using an Olympus [place] tome, selective biliary cannulation was achieved. Initial cholangiogram demonstrated filling in the area of the clips and where the gallbladder would normally be present. Also, there was filling of the intrahepatics which appeared normal. As we injected more dye, there appeared to be more accumulation of dye in and what appeared to be the gallbladder fossa. The remainder of the cholangiogram was otherwise unremarkable revealing a mildly dilated common hepatic duct measuring approximately 10 mm and with smooth tapering to the ampulla. The distal CBD measured approximately 8 mm. Next, a moderate-sized sphincterotomy was performed and balloon sweep was performed which extruded a small amount of sludge but no obvious stones were appreciated. Next, we elected to place a 10-[place] x 5 cm [employer] plastic biliary stent. The stent was successfully placed under wire guidance. Following stent placement, there was good drainage of bile and contrast noted. IMPRESSION: Low-grade bile leak status post endoscopic retrograde cholangiopancreatography with sphincterotomy and biliary stent placement. RECOMMENDATIONS: 1. Consider starting IV antibiotics for bile leak. 2. Continue to follow LFTs. 3. A repeat ERCP in six weeks for biliary stent removal. No immediate complications. ESTIMATED BLOOD LOSS: Zero.
[2016-07-24] MEDS: Acetaminophen IV 1,000 MG in IV Premix 1 EACH IV SCH ×4 (00:34→18:07)
[2016-07-24] MEDS: Lactated Ringer's 1,000 ML IV SCH ×3 (01:37→21:37)
[2016-07-24 01:50] VITALS: BP 102/65; PULSE 64; RESP 20; O2SAT 96
--- NOTE | 2016-07-24 03:27 | NUR ---
Activity Pt. has complained of no pain during shift. Pt. has been asking for help appropriately to use toilet. Will continue to monitor.
[2016-07-24 06:32] VITALS: BP 103/63; PULSE 66; RESP 20; O2SAT 96
[2016-07-24] MEDS: Dextrose 5% Lactated Ringer's 1,000 ML IV SCH ×2 (07:24→18:28)
--- NOTE | 2016-07-24 08:49 | DRSVH ---
PROCEDURE: X-RAY E.R.C. BILIARY DUCTS ([id number]) INDICATIONS: CBD STONE TECHNIQUE: Fluoroscopic spot films were acquired by the gastroenterology service during ERCP procedu re. COMPARISON: Operative cholangiogram 07/22/2016 FINDINGS: Intraoperative documentation of stone removal and stent placement via endoscopy IMPRESSION: Intraoperative images Dictated by: Guerrero Jarvis M.D. on 07/24/2016 at 8:47 Approved by: Guerrero Jarvis M.D. on 07/24/2016 at 8:47
[2016-07-24] MEDS ORDERED: SENN-133 PO (08:56)
[2016-07-24] MEDS ORDERED: AMOX-366 PO (08:56)
[2016-07-24] MEDS ORDERED: IBUP800T28 PO (08:56)
[2016-07-24] MEDS: Piperacillin-Tazo 3.375 Gm Inj 3.375 GM in Dextrose 5% Minibag Plus 50 ML IV SCH (09:30)
[2016-07-24 10:23] VITALS: BP 111/67; PULSE 59; RESP 16; O2SAT 97
[2016-07-24 10:46] LABS: BASOPHILS % (AUTO) 0 % (0-3); EOSINOPHILS % (AUTO) 0 % (0-5); MONOCYTES % (AUTO) 7.5 % (4-12); Mean Corpuscular Volume 86.9 fL (81-100); NEUTROPHILS % (AUTO) 81.4 % (40-74); Platelet Count 210 bil/L (150-400)
--- NOTE | 2016-07-24 11:31 | PCM.PNSURG ---
Subjective Date of Service: Jul 24, 2016 Date of Service: Jul 24, 2016 Visit Information: Subjective: s/p ercp and stent placement yesterday showing small bile leak. tbili normal 0.9, wbc decrease 12.2 this am. No abdominal pain per pt. on zosyn Postop General: No Complaints Objective Vital Sign- Last 8 Hours Date Time Temp Pulse Resp B/P Pulse Ox O2 Delivery O2 Flow Rate FiO2 07/24/16 10:23 36.8 59 16 111/67 97 Room Air 07/24/16 06:32 37.0 66 20 103/63 96 Room Air Intake and Output- Last 8 Hour 07/24/16 Cumulative From/Thru 07:00 07/22/16 08:52 - 07/24/16 06:02 Intake Total 594 ml 4171 ml Output Total 1410 ml Balance 594 ml 2761 ml Intake Oral 0 ml IV Total 594 ml 4171 ml Output Urine Total 1400 ml Estimated Blood Loss 10 ml # Bowel Movements 0 General: Oriented X3 Neck: Supple Lungs: Clear to Auscultation Heart: Exam Unremarkable Abdomen: Benign, Soft, Non-tender, Non-distended, No masses Extremities: Distal Pulses Palpable Result Diagram: 07/24/16 1040 07/24/16 1040 Assessment & Plan Impression This is a 35-year-old female with no past medical history presenting here with right upper quadrant pain and pancreatitis on admission. Found to have acute cholecystitis status post laparoscopic cholecystectomy with intraoperative exploration of the common bile duct July 22, 2016. Post op tbili 4.1. s/p ercp 07/23/16- IMPRESSION: Low-grade bile leak status post endoscopic retrograde cholangiopancreatography with sphincterotomy and biliary stent placement. 07/24/16- tbili 0.9, wbc 12.2 this am. No abdominal pain. Recs: 1. Abx per Gen surgery team (pt on zosyn) 2. Repeat ERCP in six weeks as outpatient for biliary stent removal. Our GI office will arrange this. 3. Diet per Gen surgery team. Problems: Khanh Mishra MD Jul 24, 2016 11:31
--- NOTE | 2016-07-24 12:04 | PROG NOTE ---
[address] [address] PROGRESS NOTE PATIENT: EBONI GAMINO : 1980 MR#: [id number] ADMIT: 07/22/2016 JOB ID: [id number] DATE: 07/24/2016 SUBJECTIVE: The patient is postoperative day two from laparoscopic cholecystectomy with transcystic common bile duct exploration and postoperative day one from ERCP with stent placement. Yesterday, the ERCP was performed. A little bit of sludge was found in the duct. Per the report there was also a low-grade bile leak and so a stent was left in place. The patient this morning tells me she feels very well. OBJECTIVE: She has remained afebrile and hemodynamically normal over the last 24 hours. This morning she is alert and oriented and comfortable. Her abdomen is soft, not significantly tender except for some mild epigastric tenderness, and nondistended. LABORATORY STUDIES: Her white blood cell count this morning has dropped from 17.2 yesterday down to 12.2 today. Her hematocrit is stable at 37. Her creatinine is 0.4. Her LFTs are normalizing. Her bilirubin is now 0.9 compared to 4.1 pre-ERCP yesterday. ASSESSMENT AND PLAN: This is a 35-year-old female two days out from laparoscopic cholecystectomy for acute cholecystitis as well as a transcystic common bile duct exploration with stone extraction for choledocholithiasis complicated by a small bile leak status post ERCP with stent placement. Clinically the patient appears to be doing very well. At this point I think it is reasonable to advance her diet. I am going to transition her from IV Zosyn to oral Levaquin and Flagyl with the plan that, if she continues to do well and her white count continues to correct tomorrow, she could go home on a five-day course of that.
--- NOTE | 2016-07-24 15:26 | PATH ---
SURGICAL PATHOLOGY Attending Physician:Sourav Butler MD CASE STATUS: Signed Out PATIENT NAME: EBONI GAMINO PID: [id number] : 1980 DATE COLLECTED:07/22/2016 00:00 SPECIMEN: Gallbladder CLINICAL HISTORY: A: GALLBLADDER FINAL DIAGNOSIS: 1.GALLBLADDER: CHOLELITHIASIS AND CHRONIC CHOLECYSTITIS. ICD10 CODE K80.6 GROSS DESCRIPTION: The specimen is received in one formalin filled container labeled with the patient's name, sublabeled "gallbladder" and consists of an intact 9.0 x 3.0 x 2.5 CM gallbladder. The serosa is smooth. The wall is 0.3-0.5 CM in thickness. The mucosa is a pink-adams to red lozada in color. The lumen contains approximately 30-40 white yellow-more multifaceted calculi which range in size from 0.1-1.0 CM in greatest dimension. 5 traffic representative sections are submitted in one cassette. 07/23/2016 DAC MICRO DESCRIPTION: See diagnosis. ICD-9 CODES: CPT CODES: 1: 64509 Electronically Signed Out Akiko Colunga MD [facility] [address], [place] [address] Technical component performed at [facility], [address] [place] [address] Ave[address], [place], [address]
[2016-07-24 17:02] VITALS: BP 103/65; PULSE 67; RESP 16; O2SAT 99
--- NOTE | 2016-07-24 19:29 | NUR ---
Pain Patient has had a small amount of pain this shift, mainly with activity. Patient otherwise has no complaints. Alert and oriented, nausea free. Care is ongoing.
[2016-07-24 20:43] VITALS: BP 103/67; PULSE 59; RESP 18; O2SAT 99
[2016-07-25 00:18] VITALS: BP 97/61; PULSE 56; RESP 18; O2SAT 98
[2016-07-25] MEDS: Acetaminophen IV 1,000 MG in IV Premix 1 EACH IV SCH ×2 (03:20→05:50)
[2016-07-25 04:43] VITALS: BP 89/62; PULSE 53; RESP 18; O2SAT 97
--- NOTE | 2016-07-25 06:32 | NUR ---
ACTIVITY: Resting in bed through the night. Denies pain, no c/o n/v. Family at her side. Uneventful night.
[2016-07-25] MEDS: Lactated Ringer's 1,000 ML IV SCH (07:37)
[2016-07-25] MEDS: Dextrose 5% Lactated Ringer's 1,000 ML IV SCH (08:20)
[2016-07-25] MEDS ORDERED: levoFLOXacin 750 mg Tablet PO ONE (08:30)
[2016-07-25 10:21] LABS: BASOPHILS % (AUTO) 0.1 % (0-3); MONOCYTES % (AUTO) 11.1 % (4-12); Mean Corpuscular Hemoglobin 30.2 pg (27.0-35.0); Mean Corpuscular Volume 88.1 fL (81-100); NEUTROPHILS % (AUTO) 51.9 % (40-74); Platelet Count 200 bil/L (150-400)
--- NOTE | 2016-07-25 10:31 | PROG NOTE ---
[address] [address] PROGRESS NOTE PATIENT: EBONI GAMINO : 1980 MR#: [id number] ADMIT: 07/22/2016 JOB ID: [id number] DATE: 07/25/2016 SUBJECTIVE: Afebrile, stable vital signs. She says she is feeling well and would like to go home. OBJECTIVE: Exam is benign. Labs from this morning are still pending as of 10:15. PLAN: If her white count is down to normal, I will switch her over to oral antibiotics and discharge her home today.
[2016-07-25] MEDS ORDERED: AMOX-363 PO (10:56)
[2016-07-25] MEDS ORDERED: OXYC5TAB72 PO (10:56)
--- NOTE | 2016-07-25 10:58 | PCM.DISURG ---
Surgical Discharge Instruction Date of Service Jul 25, 2016 Dates of Hospitalization Date of Hospital Admission Jul 22, 2016 at 19:45 Providers Admitting Physician: Sourav Butler MD Primary Care Physician: Ankur Zimmer MD Attending Physician: Sourav Butler MD Discharge Diagnosis Discharge Diagnosis cholecystitis, choledocholithiasis, bile leak Post Operative diagnosis s/p laparoscopic cholecystectomy, s/p ERCP with stent Diet Discharge Diet: No restrictions Activity Discharge Activity-General: No restrictions Dressing and Incisional Care Dressing Care: Allow Steri Stripes to fall off Hygiene: May shower Follow Up Plan Follow Up Plan follow up this week with Dr Butler to review pathology and for referral to have stent removed Call your provider for: Fever, Chills, Increasing abdominal pain, Nausea, Vomiting Khanh Low MD Jul 25, 2016 10:58
--- NOTE | 2016-07-25 13:48 | NUR ---
Discharge Pt discharged to home with family at 1345. A&Ox3, ALVAREZ, VSS, IV dc'd intact, Pain tolerable - received dose Tylenol prior to dc, 4x lap sites CDI. All personal belongings in hand at dc. CareNotes and Instructions provided on dc dx, new medications and s/sx to seek medical attention for. Hard copy scripts provided. and son present in room for dc teaching - translating and asking questions as needed. No unanswered questions or concerns at dc. Pt wheeled off unit to vehicle.
--- NOTE | 2016-07-27 12:44 | PCM.DC.SUR ---
Discharge Summary Date of Service: Date of Hospital Admission: Jul 22, 2016 at 19:45 Date of Operation(s): 07/22/2016 Date of Discharge: 07/25/2016 Diagnosis at Time of Discharge cholecystitis, choledocholithiasis, bile leak, gallstone pancreatitis s/p laparoscopic cholecystectomy, s/p ERCP with stent Problems: Operation Laparoscopic cholecystectomy with intraoperative cholangiogram and transcystic common bile duct exploration with stone extraction, using fluoroscopy with interpretation by Dr. Sourav Butler on 07/22/2016. Endoscopic retrograde cholangiopancreatography with sphincterotomy and biliary stent placement by. Dr. Fishman 07/23/2016. Brief History and Physical: The patient is a 35-year-old female who presented to the emergency department on 07/22/2016 with complaint of right upper quadrant abdominal pain. She had had episodes in the past, but none that persisted for so long. Ultrasound demonstrated findings consistent with calculus cholecystitis as well as an enlarged common bile duct. Preoperative labs demonstrated elevated lipase as well as an elevated bilirubin. Consultants: Gastroenterology Hospital Course: The patient presented to the emergency department on 07/22/2016 complaining of worsening right upper quadrant abdominal pain with associated nausea and vomiting after eating. She was found to have a leukocytosis of 12.8. She also has slightly elevated LFTs with a bilirubin of 1.7 and also a lipase of 1399. An ultrasound was obtained which demonstrates cholelithiasis, as well as gallbladder wall thickening up to 5 mm. No pericholecystic fluid was identified. She did have a positive sonographic Valladares sign. The extrahepatic bile duct measured up to 12 mm, with normal being 6-[address] Sourav Butler was consulted and the patient was taken to the operating room where she underwent the above procedure. Postoperatively, on her first postsurgical day she was noted to be afebrile and hemodynamically normal, however her white blood cell count had increased and her bilirubin had also increased. Her alkaline phosphatase and lipase were normalizing. The decision was made to have Dr. Khahn Mishra of gastroenterology consulted and she underwent an ERCP on 07/23/2016 where she is found to have a low-grade bile leak, therefore a biliary stent was placed. On 07/24/2016 the patient was feeling very well. She was afebrile and hemodynamically normal. Her white blood cell count had decreased and her LFTs were normalizing. Bilirubin was down to 0.9. Her diet was advanced and she was transitioned from IV Zosyn to oral Levaquin and Flagyl. She was discharged home on 07/25/2016. Pathology: FINAL DIAGNOSIS: 1.GALLBLADDER: CHOLELITHIASIS AND CHRONIC CHOLECYSTITIS. Disposition: The patient was discharged home tolerating a general diet with pain controlled on oral analgesics and no nausea or vomiting. Follow-up Plan: Follow up this week with Dr Butler to review pathology and for referral for repeat ERCP in 6 weeks to have stent removed. Amoxicillin/Clav K 500-125 mg (Augmentin 500-125 mg) 1 Each Tablet 1 TABLET PO BID oxyCODONE (oxyCODONE) 5 Mg Tablet 5 MG PO Q4H PRN PRN For Pain copies to: Anjali Sales MD; Ankur Zimmer MD, Danielle B PA-C Jul 27, 2016 12:44
== END 2016-07-25 13:41 | disposition home or self-care (01) ==
LOC: SED 08:37 → SAS 11:20 → OSC 19:45 → SAS 19:45
PROVIDERS: ADMIT General Practice; ATTEND General Practice
DX: K80.66 Calculus of gallbladder and bile duct with acute and chronic cholecystitis without obstruction (principal); K85.10 Biliary acute pancreatitis without necrosis or infection; K91.81 Other intraoperative complications of digestive system; E80.7 Disorder of bilirubin metabolism, unspecified; D72.829 Elevated white blood cell count, unspecified; Z87.442 Personal history of urinary calculi
CPT/HCPCS: 36415; 43274; 47564; 74300; 74328; 76700; 80053; 81000; 81025; 83690; 85025; 87077; 87086; 87088; 87186; 96361; 96365; 96375; 99285; G0378; J0131; J0330; J0690; J1100; J1170; J2250; J2405; J2543; J2765; J3010; J7030; J7120; Q9967

== ENCOUNTER 2016-09-03 07:40 | Day surgery (SDC) | payer MEDICAID ==
[~2016-09-03] VITALS: Ht 157.5 cm; Wt 55.8 kg
[2016-09-03] VITALS (9 sets, daily range): BP systolic 95–113; BP diastolic 58–82; PULSE 63–85; RESP 13–16; O2SAT 97–100
[~2016-09-03 07:40] MED LIST: AMOX-363 PO; Lactated Ringer's 1,000 ML IV ONE; OXYC5TAB72 PO
[2016-09-03] MEDS ORDERED: Ondansetron 2 mg/mL 2 mL Inj ONE (07:41)
[2016-09-03] MEDS ORDERED: Propofol 10,000 mCg/mL 20 mL Inj ONE (07:41)
[2016-09-03] MEDS ORDERED: Rocuronium 10 mg/mL 5 mL Inj ONE (07:41)
[2016-09-03] MEDS ORDERED: fentaNYL-PF 50 mCg/mL 2 mL Inj ONE (07:41)
[2016-09-03] MEDS ORDERED: Dexamethasone 4 mg/mL Inj ONE (07:41)
[2016-09-03] MEDS ORDERED: Succinylcholine Chloride 20 mg/mL 5 mL Inj ONE (07:41)
[2016-09-03] MEDS ORDERED: Lactated Ringer's 1,000 ML IV SCH (08:29)
[2016-09-03] MEDS ORDERED: Lactated Ringer's 500 ML IV PRN (08:29)
--- NOTE | 2016-09-03 08:29 | PCM.HPANE ---
Patient Data Surgeon Admitting Provider: Attending Provider:Anjali Sales MD Primary Care Physician:Ankur Zimmer MD Other Provider:Mri Schmid Anesthesia Reason for Visit Oth Postprocedural Complications And Disorders Of Ht/WT & BMI Height (Feet): 5 Height (Inches): 2 Weight (Kilograms): 55.79 Body Mass Index 22.00 Allergies Coded Allergies: No Known Allergies (Unverified Allergy, Unknown, 07/23/16) Past Anesthesia History Anesthesia History: Denies:: Abnormal Airway, Anesthesia Reactions, Difficult Intubation, Fam Anesthesia Reaction, Fam Malignant Hypertherm, Malignant Hyperthermia Diabetes History Hx Diabetes?: No MRSA MRSA: No Medications Home Meds Incl Beta Rosibel: No Discontinued Scripts Amoxicillin/Clav K 500-125 mg (Augmentin 500-125 mg)1 Each Tablet1 Tablet PO BID #20 TABLET Ref 0 Prov:Khanh Low MD 07/25/16 oxyCODONE 5 Mg Tablet5 Mg PO Q4H PRN For Pain #10 TABLET Prov:Khanh Low MD 07/25/16 History History of ENT Problems?: No HEENT History: Denies:: Abnormal Airway Difficult Intubation Dysphagia Hearing Problem Hx of Heart Problems?: No Cardiovascular History: Denies:: AICD Atrial Fibrillation Chest Pain Congestive Heart Failure Hypertension Pacemaker Valvular Heart Disease Hx of Respiratory Problem?: No Respiratory History: Denies:: Tuberculosis Hx Neurologic Problems?: No Neurological History: Denies:: CVA Hx of GI Problems?: Yes Gastrointestinal History: Denies:: Cirrhosis Diverticulitis Gall Bladder Disease Gastroesphageal Reflux Hiatal Hernia Liver Disease Rectal Bleeding Hx of Problems?: No HX of Peritoneal Dialysis: No Female Hx: Denies:: Currently (on depo shot) Problems with Breasts? Hx Musculoskeletal Problems?: No Hx of Psycho/Social Problems?: No Psycho Social History: Denies:: Anxiety Hx Depression Hx Surgeries?: No Hx Any Other Health Problems?: No Other History: Denies:: Cancer Hospitalization Thyroid Disease History Blood Transfusions: Denies:: Blood Transfuse Reaction Blood Transfusions Hx Diabetes: No Hx Alcohol Use: NoHx Substance Use: No Smoking Status: Unknown if Ever Smoker Have You Smoked inLast 12 mo: No Stop/Bang Treated for Sleep Apnea?: No Do You Have a CPAP Machine?: No S-Snoring: Do You Snore Loudly: No T-Tired: feel tired, fatigued: No O-Obsered: Observed not breath: No P-Blood Pressure: treated: No B- Body Mass Index > 35 kg/m2: No A- Age over 50: No N- Neck Large Circumference: No G- Gender Male: No TRISTIN Total Score: 0 TRISTIN Risk Assessment: Low Risk, <3 Yes Risk Assessment Category Category 1A: Patient has history of documented sleep apnea, and HAS NOT received any narcotic, sedative or anesthesia administration during this stay. Category 1B: Patient has history of documented sleep apnea, and HAS received any narcotic , sedative or anesthesia administration during this stay Category 2: Patient has SUSPECTED Obstructive Sleep Apnea, and HAS received any narcotic , sedative or anesthesia administration during this stay. Category 3: Patient has SUSPECTED Obstructive Sleep Apnea and HAS NOT received narcotic, sedative or anesthesia administration during this stay. Category 4: Outpatient in Procedural Areas with known sleep apnea or who screen positive for High Risk via the STOP/BANG questionnaire. Exam Exam Vital Signs Vital Signs Date Time Temp Pulse Resp B/P Pulse Ox O2 Delivery O2 Flow Rate FiO2 09/03/16 08:11 36.8 72 110/77 99 Room Air General Appearance: Alert, Oriented X3, Cooperative, No Acute Distress HEENT/AIRWAY: MP 2 Lungs: Clear to Auscultation, Normal Air Movement Heart: Exam Unremarkable, Regular Rate/Rhythm, No Murmurs/Rubs/Gallops Plan Impression Patient chart reviewed, patient interviewed and anesthestic plan with risks, benefits, and alternatives discussed, and informed consent obtained. 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
[2016-09-03] MEDS ORDERED: EPHEDrine Sulfate 50 mg/mL Inj IVPUSH PRN (08:30)
[2016-09-03] MEDS ORDERED: hydrALAZINE 20 mg/mL Inj IVPUSH PRN (08:30)
[2016-09-03] MEDS ORDERED: Phenylephrine 10,000 mCg/mL Inj IVPUSH PRN (08:30)
[2016-09-03] MEDS ORDERED: Labetalol 5 mg/mL 4 mL Inj IV PRN (08:30)
[2016-09-03] MEDS ORDERED: Atropine 0.4 mg/mL Inj IVPUSH PRN (08:30)
[2016-09-03] MEDS ORDERED: HYDROmorphone 1 mg/mL Inj IVPUSH PRN (08:30)
[2016-09-03] MEDS ORDERED: fentaNYL-PF 50 mCg/mL 2 mL Inj IVPUSH PRN (08:30)
[2016-09-03] MEDS ORDERED: Ondansetron 2 mg/mL 2 mL Inj IVPUSH PRN (08:30)
[2016-09-03] MEDS ORDERED: MetoCLOpramide 5 mg/mL 2 mL Inj IVPUSH PRN (08:30)
--- NOTE | 2016-09-03 09:38 | PCM.ANEP1 ---
Post Anesthesia Phase 1 PACU Phase 1 Assessment Vital Signs Vital Signs Date Time Temp Pulse Resp B/P Pulse Ox O2 Delivery O2 Flow Rate FiO2 09/03/16 08:11 36.8 72 110/77 99 Room Air Anesthetic Administered: GA Level of Alertness: Sleepy, easy to arouse ALVAREZ's with Equal Strength: Yes Pain: No Nausea or Vomiting: No Oxygen Delivery: Nasal Cannula Lungs: Clear to Auscultation, Normal Air Movement Summary VSS Byron Mejia MD Sep 03, 2016 09:38
--- NOTE | 2016-09-03 09:39 | PCM.ANEP2 ---
Post Anesthesia Evaluation ASA/CMS Post Anesthesia VS in Patient's Normal Range?: Yes Resp Stable; Airway Patent?: Yes CV Function & Hydration Stable: Yes Mental Status Recovered?: Yes Pain control Satisfactory?: Yes N/V Control Satisfactory?: Yes Byron Mejia MD Sep 03, 2016 09:39
--- NOTE | 2016-09-03 10:01 | ENDO ---
[address] [address] ENDOSCOPY PROCEDURE PATIENT: EBONI GAMINO : 1980 MR#: [id number] ADMIT: 09/03/2016 JOB ID: [id number] DATE: 09/03/2016 PROCEDURE: Endoscopic retrograde cholangiopancreatography. INDICATION: The patient with a history of bile leak status post laparoscopic cholecystectomy in July of this year. She returns now for biliary stent removal. Please see Dr. Byron Mejia's anesthesia report for details regarding ASA classification, Mallampati score and medications. The patient was placed under general anesthesia. INSTRUMENT USED: TJF Q180V. PROCEDURE DETAILS: After informed consent was obtained, the patient was brought into the GI suite, where she was placed under general anesthesia and then a bite block was placed and then she was placed in the standard ERCP position. Initial client delivery specialist film demonstrated a biliary stent in the expected location. Next, the side-viewing duodenoscope was introduced through the bite block and advanced without difficulty to the second portion of the duodenum. Previously placed biliary stent was in place with active bile flow noted. Next, using a standard snare, I removed the biliary stent intact. Following this, using a [employer] 7-[place] Autotome, selective biliary cannulation was achieved under wire guidance. Initial cholangiogram demonstrated an approximately 10 mm common bile duct without any filling defects. Next, the intrahepatics were filled and appeared unremarkable. There was no leakage of contrast noted outside of the biliary tree. The Autotome was removed and then a balloon catheter was introduced into the biliary tree and an occlusion cholangiogram was performed which again did not reveal the presence of leakage of contrast outside the biliary tree. IMPRESSION: Status post endoscopic retrograde cholangiopancreatography with biliary stent removal and occlusion cholangiogram with no evidence of biliary leak. RECOMMENDATIONS: Followup in GI clinic as needed. COMPLICATIONS: None. ESTIMATED BLOOD LOSS: Less than 5 mL. MTDD
--- NOTE | 2016-09-03 10:31 | DRSVH ---
PROCEDURE: X-RAY E.R.C. BILIARY DUCTS ([id number]) INDICATIONS: STENT REMOVAL TECHNIQUE: Fluoroscopic spot films were acquired by the gastroenterology service during ERCP procedu re. COMPARISON: [facility], CR, XR CHOLANGIOGRAM OPERATIVE, 07/22/2016, 17:55. [facility], CR, XR ERC BILIARY DUCTS, 07/23/2016, 18:38. FINDINGS: 3 intraoperative images demonstrate removal of biliary stent. IMPRESSION: Biliary stent removal. Dictated by: Ant Mayers RRYanet Interpreted: Torey Her MD on 09/03/2016 at 10:29 Transcribed by: BERRY on 09/03/2016 at 10:30 Approved by: Torey Her M.D. on 09/04/2016 at 20:54
== END 2016-09-03 23:59 | disposition home or self-care (01) ==
LOC: END 07:40
PROVIDERS: ATTEND Internal Medicine Gastroenterology
DX: Z46.59 Encounter for fitting and adjustment of other gastrointestinal appliance and device (principal)
CPT/HCPCS: 43275; 74328; J0330; J1100; J2250; J2405; J3010; J7120; Q9967